=== PATIENT | female | born 1930 | race Caucasian/White ===

== ENCOUNTER 2017-06-29 14:19 | Emergency (ER) | payer MEDICARE ==
[~2017-06-29] VITALS: Ht 160 cm; Wt 56.0 kg
[~2017-06-29 14:19] MED LIST: ATOR10TA70 PO; AZIT250T13 PO; ESOM40CA30 PO; ESTR0.6261 PO; FENT-90 TP; FERR-86 PO; GABA-532 PO; HYDR-3972 PO; ISOS30TA6 PO; RIVA20TA PO; SERT100T PO; SOTA80TA69 PO; THY60T PO; VIT1TABL32 PO
[2017-06-29 15:07] LABS: BASOPHILS % (AUTO) 0.1 % (0-1); EOSINOPHILS # (AUTO) 0.1 X10'3 (0-0.9); EOSINOPHILS % (AUTO) 1.9 % (0-6); HEMATOCRIT 38.6 % (35.0-45.0); HEMOGLOBIN 13.2 g/dl (12.0-16.0); LYMPHOCYTES # (AUTO) 0.8 X10'3 (1.1-4.8); MEAN CORPUSCULAR HEMOGLOBIN 33.2 PG (27.0-31.0); MEAN CORPUSCULAR HGB CONC 34.1 % (33.0-36.5); MEAN CORPUSCULAR VOLUME 97.4 FL (78-98); MEAN PLATELET VOLUME 9.3 FL (7.4-10.4); MONOCYTES # (AUTO) 0.4 X10'3 (0-0.9); MONOCYTES % (AUTO) 7.4 % (2-12); NEUTROPHILS # (AUTO) 4.4 X10'3 (1.8-7.7); NEUTROPHILS % (AUTO) 76.6 % (42-75); PLATELET COUNT 173 X10'3 (140-440); RED BLOOD COUNT 3.96 X10'6 (4.20-5.60); RED CELL DISTRIBUTION WIDTH 13.1 % (11.5-14.5); WHITE BLOOD COUNT 5.8 X10'3 (4.5-11.0)
[2017-06-29 15:22] LABS: ALANINE AMINOTRANSFERASE 31 U/L (12-78); ALBUMIN 3.6 G/DL (3.4-5.0); ALBUMIN/GLOBULIN RATIO 0.7 (1.1-1.5); ALKALINE PHOSPHATASE 82 IU/L (46-116); ANION GAP 5 (8-16); ASPARTATE AMINO TRANSFERASE 26 U/L (10-37); BILIRUBIN,TOTAL 0.5 MG/DL (0.1-1.0); BLOOD UREA NITROGEN 29 MG/DL (7-18); BUN/CREATININE RATIO 38.7 (6.6-38.0); CALCIUM 9.6 MG/DL (8.5-10.1); CHLORIDE 102 MMOL/L (99-107); CREATININE 0.75 MG/DL (0.40-0.90); GLUCOSE 120 MG/DL (70-104); POTASSIUM 4.6 MMOL/L (3.5-5.1); SODIUM 141 MMOL/L (135-145); TOTAL CARBON DIOXIDE 33.7 MMOL/L (24-32); TOTAL PROTEIN 8.6 G/DL (6.4-8.2); eGFR 74 ML/MIN
[2017-06-29 15:24] LABS: INR 0.9 INR; PARTIAL THROMBOPLASTIN TIME 25 SECONDS (22-32); PROTHROMBIN TIME 9.7 SECONDS (9.0-12.0)
[2017-06-29] MEDS ORDERED: GUAI5SYR5 CORPAK (15:59)
[2017-06-29 16:12] VITALS: BP 115/70
== END 2017-06-29 16:14 | disposition home or self-care (01) ==
LOC: ER 14:19
DX: R06.00 Dyspnea, unspecified (principal); R05 Cough; R06.02 Shortness of breath; R42 Dizziness and giddiness; Z85.818 Personal history of malignant neoplasm of other sites of lip, oral cavity, and pharynx; I48.91 Unspecified atrial fibrillation; K21.9 Gastro-esophageal reflux disease without esophagitis; Z90.49 Acquired absence of other specified parts of digestive tract; Z79.899 Other long term (current) drug therapy
CPT/HCPCS: 36415; 71045; 80053; 84484; 85025; 85610; 85730; 93005; 99285

== ENCOUNTER 2019-08-28 15:23 | Emergency (ER) | payer MEDICARE ==
[~2019-08-28] VITALS: Ht 167.6 cm; Wt 43.6 kg
[~2019-08-28 15:23] MED LIST changes: -ESOM40CA30 PO; +ESOM40CA49 PO; +SOTA80TA46 PO; -SOTA80TA69 PO
[2019-08-28] MEDS ORDERED: morphine 4 MG/ML inj SYRINge IM ONE (17:10)
[2019-08-28] MEDS ORDERED: morphine 2 MG/ML inj. syringe IM ONE (17:10)
[2019-08-28] MEDS ORDERED: ondansetron/PF 4mg/2ml inj IM ONE (17:10)
[2019-08-28 17:20] VITALS: BP 139/74
[2019-08-29] MEDS ORDERED: PROC25SU31 RC (12:51)
[2019-08-29] MEDS ORDERED: NITR0.4T51 SL (12:52)
== END 2019-08-28 17:21 | disposition home or self-care (01) ==
LOC: ER 15:24
DX: K94.23 Gastrostomy malfunction (principal); I48.91 Unspecified atrial fibrillation; K21.9 Gastro-esophageal reflux disease without esophagitis; Z90.49 Acquired absence of other specified parts of digestive tract; Z90.710 Acquired absence of both cervix and uterus; Z98.890 Other specified postprocedural states; Z79.2 Long term (current) use of antibiotics; Z79.01 Long term (current) use of anticoagulants; Z79.899 Other long term (current) drug therapy
CPT/HCPCS: 96372; 99284; J2270; J2405

== ENCOUNTER 2019-08-29 12:12 | Day surgery (SDC) | payer MEDICARE ==
[~2019-08-29] VITALS: Ht 167.6 cm; Wt 42.8 kg
[2019-08-29 12:30] VITALS: BP 122/67
[2019-08-29] MEDS ORDERED: iohexol 300 MG/1 ML 50ml polymer ONE (12:49)
[2019-08-29] MEDS ORDERED: PROC25SU31 RC (12:51)
[2019-08-29] MEDS ORDERED: NITR0.4T51 SL (12:52)
[2019-08-29 13:00] VITALS: BP 125/70
--- NOTE | 2019-08-29 13:00 | NUR ---
IR TEAM HERE TO PLACE G TUBE, IN ROOM. KUB ORDERED, PT NAYAN WELL. VS STABLE. SLIGHT OOZING AT SITE
[2019-08-29] MEDS ORDERED: HYDROcodone/acetaminophen 10/325mg tab PO ONE (13:05)
[2019-08-29 13:10] VITALS: BP 123/69
[2019-08-29 13:50] VITALS: BP 125/71
== END 2019-08-29 13:50 | disposition home or self-care (01) ==
LOC: SSTAY O 12:12
PROVIDERS: ATTEND Radiology Vascular & Interventional Radiology
DX: R13.10 Dysphagia, unspecified (principal); Z85.89 Personal history of malignant neoplasm of other organs and systems
CPT/HCPCS: 43763; 74018; Q9967; B4087

== ENCOUNTER 2019-11-28 15:10 | Emergency (ER) | payer MEDICARE ==
[~2019-11-28] VITALS: Ht 167.6 cm; Wt 46.2 kg
[~2019-11-28 15:10] MED LIST changes: -ATOR10TA70 PO; -AZIT250T13 PO; +DOCU50LI22 OGT; -ESOM40CA49 PO; -FENT-90 TP; -FERR-86 PO; -GABA-532 PO; -HYDR-3972 PO; -ISOS30TA6 PO; +LACT10SO32 OGT; +LEVO100T9 PO; +LEVO250T58 PEG; +MORP15TA PO; +NITR0.4T51 SL; +OMEP20TA23 PO; +ONDA4TAB12 PO; +PHEN100C4 PEG; +RISP0.5T3 PEG; -THY60T PO; -VIT1TABL32 PO
[2019-11-28 15:19] VITALS: BP 98/47
--- NOTE | 2019-11-28 18:05 | NUR ---
SEEN BY MD AND DISCHARGED BEFORE RN WAS ABLE TO EXAMINE
== END 2019-11-28 18:06 | disposition home or self-care (01) ==
LOC: ER 15:11
DX: Z96.89 Presence of other specified functional implants (principal); I48.91 Unspecified atrial fibrillation; K21.9 Gastro-esophageal reflux disease without esophagitis; Z85.9 Personal history of malignant neoplasm, unspecified; Z90.89 Acquired absence of other organs; Z90.49 Acquired absence of other specified parts of digestive tract; Z90.710 Acquired absence of both cervix and uterus; Z79.2 Long term (current) use of antibiotics; Z79.899 Other long term (current) drug therapy
CPT/HCPCS: 43762; 99281; 99284; B4087

== ENCOUNTER 2020-02-21 15:20 | Outpatient (CLI) | payer MEDICARE ==
[~2020-02-21 15:20] MED LIST changes: -RISP0.5T3 PEG; +RISP0.5T65 PEG
== END 2020-02-21 23:59 | disposition home or self-care (01) ==
LOC: RAD 15:20
PROVIDERS: ATTEND Nurse Practitioner Family
DX: R13.12 Dysphagia, oropharyngeal phase (principal); Z85.89 Personal history of malignant neoplasm of other organs and systems
CPT/HCPCS: 74230

== ENCOUNTER 2020-09-19 16:03 | Emergency (ER) | payer MEDICARE ==
[~2020-09-19] VITALS: Ht 167.6 cm; Wt 43.6 kg
[2020-09-19] MEDS ORDERED: dextrose 5%-1/2 normal saline 1,000 ML IV ONE (16:55)
[2020-09-19 17:05] LABS: BASOPHILS % (AUTO) 0.2 % (0-1); EOSINOPHILS % (AUTO) 0.1 % (0-6); HEMATOCRIT 33.4 % (35.0-45.0); HEMOGLOBIN 11.1 g/dl (12.0-16.0); LYMPHOCYTES # (AUTO) 0.2 X10'3 (1.1-4.8); LYMPHOCYTES % (AUTO) 1.2 % (21-51); MEAN CORPUSCULAR HEMOGLOBIN 30.5 PG (27.0-31.0); MEAN CORPUSCULAR HGB CONC 33.1 g/dL (33.0-36.5); MEAN CORPUSCULAR VOLUME 92.1 FL (78-98); MEAN PLATELET VOLUME 9.1 FL (7.4-10.4); MONOCYTES # (AUTO) 0.5 X10'3 (0-0.9); NEUTROPHILS # (AUTO) 12.5 X10'3 (1.8-7.7); NEUTROPHILS % (AUTO) 94.5 % (42-75); PLATELET COUNT 131 X10'3 (140-440); RED BLOOD COUNT 3.63 X10'6 (4.20-5.60); RED CELL DISTRIBUTION WIDTH 14.1 % (11.5-14.5); WHITE BLOOD COUNT 13.2 X10'3 (4.5-11.0)
[2020-09-19 17:21] LABS: ALANINE AMINOTRANSFERASE 23 U/L (12-78); ALBUMIN 3.2 G/DL (3.4-5.0); ALBUMIN/GLOBULIN RATIO 0.7 (1.1-1.5); ALKALINE PHOSPHATASE 75 IU/L (46-116); ANION GAP 10 (8-16); ASPARTATE AMINO TRANSFERASE 32 U/L (10-37); BILIRUBIN,TOTAL 0.5 MG/DL (0.1-1.0); BLOOD UREA NITROGEN 32 MG/DL (7-18); CALCIUM 8.8 MG/DL (8.5-10.1); CHLORIDE 103 MMOL/L (99-107); GLUCOSE 172 MG/DL (70-104); MAGNESIUM 1.8 MG/DL (1.5-2.4); SODIUM 140 MMOL/L (135-145); TOTAL CARBON DIOXIDE 27.3 MMOL/L (24-32); TOTAL PROTEIN 7.9 G/DL (6.4-8.2); eGFR 68 ML/MIN
[2020-09-19] MEDS ORDERED: CefTRIAXone/D5W-Rocephin 1gm 50 ML IV ONE (18:30)
[2020-09-19] MEDS ORDERED: normal saline 1000ML IV soln IVB ONE ×2 (19:20→19:25)
--- NOTE | 2020-09-19 19:30 | NUR ---
attempt made to collect urine- noted that patient brief was wet. Perineal care provided and clean brief in place. ED provider made aware- unable to collect urine specimen at this time.
[2020-09-19 21:22] LABS: CLARITY,URINE SLIGHTLY CLOUDY (Clear); COLOR,URINE YELLOW (Yellow); GLUCOSE, URINE NEGATIVE (Neg); KETONES,URINE NEGATIVE (Neg); LEUKOCYTE ESTERASE ,URINE TRACE (Neg); NITRITES, URINE NEGATIVE (Neg); OCCULT BLOOD,URINE LARGE (Neg); PH,URINE 7.5 (4.8-8.0); PROTEIN,URINE TRACE mg/dl (Neg)
[2020-09-19 21:29] LABS: UA COLLECTION TYPE STRAIGHT CATH
[2020-09-19 21:36] LABS: BACTERIA,URINE 2+ /HPF (Neg); SQUAMOUS EPITHELIAL CELL,UR NONE SEEN /LPF (FEW); WBC,URINE 0-4 /HPF (0-4)
[2020-09-19] MEDS ORDERED: CEPH250T PO (21:55)
[2020-09-19 22:59] VITALS: BP 107/61
== END 2020-09-19 23:01 | disposition home or self-care (01) ==
LOC: ER 16:03
DX: N39.0 Urinary tract infection, site not specified (principal); R41.82 Altered mental status, unspecified; R53.1 Weakness; E86.0 Dehydration; R05 Cough; I48.91 Unspecified atrial fibrillation; K21.9 Gastro-esophageal reflux disease without esophagitis; Z85.9 Personal history of malignant neoplasm, unspecified; Z90.89 Acquired absence of other organs; Z90.49 Acquired absence of other specified parts of digestive tract; Z90.710 Acquired absence of both cervix and uterus; Z98.890 Other specified postprocedural states; Z79.2 Long term (current) use of antibiotics; Z79.899 Other long term (current) drug therapy
CPT/HCPCS: 36415; 71045; 80053; 81001; 83605; 83735; 84145; 84443; 84484; 85025; 87040; 87088; 93005; 96361; 96365; 99285; J0696; J7030; 87077

== ENCOUNTER 2022-01-31 19:54 | Inpatient (IN) | payer MEDICARE ==
[~2022-01-31] VITALS: Ht 160 cm; Wt 65.9 kg
[~2022-01-31 19:54] MED LIST changes: -DOCU50LI22 OGT; -ESTR0.6261 PO; -LACT10SO32 OGT; -LEVO250T58 PEG; -NITR0.4T51 SL; -OMEP20TA23 PO; -ONDA4TAB12 PO; -PHEN100C4 PEG; -RISP0.5T65 PEG; -RIVA20TA PO
[2022-01-31] MEDS ORDERED: APIX2.5T PO (20:23)
[2022-01-31] MEDS ORDERED: CARV6.2555 PO (20:23)
[2022-01-31 20:34] LABS: BASOPHILS % (AUTO) 0.1 % (0-1); EOSINOPHILS % (AUTO) 0.1 % (0-6); HEMATOCRIT 39.3 % (35.0-45.0); HEMOGLOBIN 13.4 g/dl (12.0-16.0); LYMPHOCYTES # (AUTO) 0.3 X10'3 (1.1-4.8); LYMPHOCYTES % (AUTO) 2.3 % (21-51); MEAN CORPUSCULAR HEMOGLOBIN 32.2 PG (27.0-31.0); MEAN CORPUSCULAR HGB CONC 34.2 g/dL (33.0-36.5); MEAN CORPUSCULAR VOLUME 94.3 FL (78-98); MEAN PLATELET VOLUME 9.2 FL (7.4-10.4); MONOCYTES # (AUTO) 0.6 X10'3 (0-0.9); MONOCYTES % (AUTO) 4.1 % (2-12); NEUTROPHILS # (AUTO) 12.9 X10'3 (1.8-7.7); NEUTROPHILS % (AUTO) 93.4 % (42-75); PLATELET COUNT 124 X10'3 (140-440); RED BLOOD COUNT 4.17 X10'6 (4.20-5.60); RED CELL DISTRIBUTION WIDTH 13.9 % (11.5-14.5); WHITE BLOOD COUNT 13.8 X10'3 (4.5-11.0)
[2022-01-31 20:40] LABS: CLARITY,URINE CLOUDY (Clear); COLOR,URINE YELLOW (Yellow); GLUCOSE, URINE NEGATIVE (Neg); KETONES,URINE NEGATIVE (Neg); LEUKOCYTE ESTERASE ,URINE SMALL (Neg); NITRITES, URINE POSITIVE (Neg); OCCULT BLOOD,URINE LARGE (Neg); PROTEIN,URINE 30 mg/dl (Neg)
[2022-01-31 20:43] LABS: ALANINE AMINOTRANSFERASE 29 U/L (12-78); ALBUMIN 3.1 G/DL (3.4-5.0); ALBUMIN/GLOBULIN RATIO 0.6 (1.1-1.5); ALKALINE PHOSPHATASE 115 IU/L (46-116); ANION GAP 8 (8-16); ASPARTATE AMINO TRANSFERASE 34 U/L (10-37); BILIRUBIN,TOTAL 0.7 MG/DL (0.1-1.0); BLOOD UREA NITROGEN 35 MG/DL (7-18); BUN/CREATININE RATIO 39.8 (6.6-38.0); CALCIUM 9.3 MG/DL (8.5-10.1); CHLORIDE 105 MMOL/L (99-107); CREATININE 0.88 MG/DL (0.40-0.90); GLUCOSE 184 MG/DL (70-104); POTASSIUM 4.1 MMOL/L (3.5-5.1); SODIUM 141 MMOL/L (135-145); TOTAL CARBON DIOXIDE 28.3 MMOL/L (24-32); eGFR 61 ML/MIN
[2022-01-31 20:51] LABS: UA COLLECTION TYPE STRAIGHT CATH
[2022-01-31 20:52] LABS: BACTERIA,URINE 4+ /HPF (Neg); RBC,URINE 0-2 /HPF (0-2); SQUAMOUS EPITHELIAL CELL,UR NONE SEEN /LPF (FEW); WBC,URINE 20-30 /HPF (0-4)
[2022-01-31] MEDS ORDERED: piperacillin/tazo 3.375gm/50ml 50 ML IV STA (21:05)
[2022-01-31] MEDS ORDERED: metoprolol tartrate 1mg/ml inj IV ONE (21:05)
[2022-01-31] MEDS ORDERED: normal saline 1000ml 1,000 ML IV ONE (21:05)
[2022-01-31] MEDS ORDERED: morphine IR (immed. release) 30mg tablet PO PRN (21:40)
[2022-01-31] MEDS ORDERED: ondansetron/PF 4mg/2ml inj IV PRN (22:05)
[2022-01-31] MEDS ORDERED: magnesium 4gm in 100ml NS 100 ML IV PRN (22:05)
[2022-01-31] MEDS ORDERED: acetaminophen 325mg tablet PO PRN (22:05)
[2022-01-31] MEDS ORDERED: potassium Cl 40MEQ/1/2NS 520ml 520 ML IV PRN (22:05)
[2022-01-31] MEDS ORDERED: acetaminophen 650mg rectal suppository RC PRN (22:05)
[2022-01-31] MEDS ORDERED: mag hydrox/Alum hydrox/simeth 30ml oral suspension PO PRN (22:05)
--- NOTE | 2022-02-01 02:30 | NUR ---
Pt has not produced urine since admission. aware. New orders for NS at 100 ml/hr.
[2022-02-01] MEDS: normal saline 1000ml 1,000 ML IV SCH ×3 (03:04→20:42)
--- NOTE | 2022-02-01 03:18 | NUR ---
Patient in room ED 7. I have received report from Myriam ESTRADA RN and had the opportunity to ask questions and assume patient care.
[2022-02-01 03:46] LABS: BASOPHILS % (AUTO) 0.1 % (0-1); EOSINOPHILS % (AUTO) 0 % (0-6); HEMATOCRIT 35.6 % (35.0-45.0); HEMOGLOBIN 12.1 g/dl (12.0-16.0); LYMPHOCYTES # (AUTO) 0.8 X10'3 (1.1-4.8); LYMPHOCYTES % (AUTO) 5.3 % (21-51); MEAN CORPUSCULAR HEMOGLOBIN 32.1 PG (27.0-31.0); MEAN CORPUSCULAR HGB CONC 33.9 g/dL (33.0-36.5); MEAN CORPUSCULAR VOLUME 94.8 FL (78-98); MEAN PLATELET VOLUME 9.4 FL (7.4-10.4); MONOCYTES # (AUTO) 0.7 X10'3 (0-0.9); MONOCYTES % (AUTO) 5.1 % (2-12); NEUTROPHILS % (AUTO) 89.5 % (42-75); PLATELET COUNT 136 X10'3 (140-440); RED BLOOD COUNT 3.76 X10'6 (4.20-5.60); RED CELL DISTRIBUTION WIDTH 13.9 % (11.5-14.5); WHITE BLOOD COUNT 14.5 X10'3 (4.5-11.0)
[2022-02-01 03:57] LABS: ALANINE AMINOTRANSFERASE 23 U/L (12-78); ALBUMIN 2.6 G/DL (3.4-5.0); ALBUMIN/GLOBULIN RATIO 0.6 (1.1-1.5); ALKALINE PHOSPHATASE 97 IU/L (46-116); ANION GAP 8 (8-16); ASPARTATE AMINO TRANSFERASE 28 U/L (10-37); BILIRUBIN,TOTAL 0.6 MG/DL (0.1-1.0); BLOOD UREA NITROGEN 31 MG/DL (7-18); BUN/CREATININE RATIO 32.6 (6.6-38.0); CHLORIDE 108 MMOL/L (99-107); CREATININE 0.95 MG/DL (0.40-0.90); GLUCOSE 147 MG/DL (70-104); MAGNESIUM 1.8 MG/DL (1.5-2.4); POTASSIUM 3.9 MMOL/L (3.5-5.1); SODIUM 143 MMOL/L (135-145); TOTAL CARBON DIOXIDE 27.4 MMOL/L (24-32); TOTAL PROTEIN 7.2 G/DL (6.4-8.2); eGFR 55 ML/MIN
[2022-02-01 04:00] VITALS: BP 116/59
--- NOTE | 2022-02-01 04:30 | NUR ---
Pt. arrived via [place] fr/ED in no acute distress. Oriented to bed, room, and surroundings. Pt. mostly non verbal, answering simple yes/no questions approp. Appears fatigued and lethargic, affect flat. Reviewed POC, SCDs placed, and IS at bedside. Pt. very sleepy and unable to follow instructions at this time. NPO as ord. Gastric tube access to L ABD quad is intact. IV fluids infusing per ord.
--- NOTE | 2022-02-01 06:25 | NUR ---
Problems reprioritized. Patient report given, questions answered & plan of care reviewed with Jessenia VIVEROS.
[2022-02-01 07:06] VITALS: BP 105/54
[2022-02-01] MEDS: K and/or MAG REPLACEMENT MC SCH ×2 (08:00→19:09)
[2022-02-01] MEDS: docusate sod 100mg capsule PO SCH ×2 (08:00→20:41)
[2022-02-01] MEDS: CefTRIAXone/D5W-Rocephin 1gm 50 ML IV SCH (08:00)
[2022-02-01 11:00] VITALS: BP 119/52
[2022-02-01] MEDS: levoTHYROXINE 100mcg tablet PO SCH (11:00)
[2022-02-01] MEDS: carvedilol 6.25mg tablet PO SCH ×2 (11:00→20:41)
[2022-02-01] MEDS: apixaban 2.5mg tablet PO SCH ×2 (11:00→20:41)
[2022-02-01] MEDS: sertraline 50mg tablet PO SCH (11:00)
--- NOTE | 2022-02-01 14:40 | NUR ---
Mrs. Rabago is typically chair ridden at home and worsening with ambulation. Pts is no longer able to provide safe care for the pt. The pt will benefit from transitioning into a group home correction. I request a social insurance administrator referral and to partner with case management
[2022-02-01 15:00] VITALS: BP 103/59
[2022-02-01 18:00] VITALS: BP 141/77
[2022-02-01 22:00] VITALS: BP 153/85
[2022-02-02 02:00] VITALS: BP 170/87
--- NOTE | 2022-02-02 02:48 | NUR ---
SaO2 is 95 % 2 LPM, 93% on RA, bilateral lungs sound is crackle, wet cough, current is on NS 100 ml/h, tube feeding residum is 0 ml, notified and new order NS 50 ml/h D.C NS 100 ml/h
[2022-02-02] MEDS: normal saline 1000ml 1,000 ML IV SCH ×2 (03:29→22:50)
[2022-02-02 07:09] VITALS: BP 146/77
[2022-02-02] MEDS: levoTHYROXINE 100mcg tablet PO SCH (08:00)
[2022-02-02] MEDS: K and/or MAG REPLACEMENT MC SCH ×2 (08:00→20:00)
[2022-02-02] MEDS: docusate sod 100mg capsule PO SCH ×2 (08:00→21:58)
[2022-02-02 09:26] LABS: BASOPHILS % (AUTO) 0.4 % (0-1); EOSINOPHILS % (AUTO) 0.1 % (0-6); HEMATOCRIT 36.7 % (35.0-45.0); HEMOGLOBIN 12.2 g/dl (12.0-16.0); LYMPHOCYTES # (AUTO) 0.8 X10'3 (1.1-4.8); LYMPHOCYTES % (AUTO) 6.1 % (21-51); MEAN CORPUSCULAR HEMOGLOBIN 31.6 PG (27.0-31.0); MEAN CORPUSCULAR HGB CONC 33.1 g/dL (33.0-36.5); MEAN CORPUSCULAR VOLUME 95.5 FL (78-98); MEAN PLATELET VOLUME 9.7 FL (7.4-10.4); MONOCYTES # (AUTO) 0.7 X10'3 (0-0.9); MONOCYTES % (AUTO) 5.9 % (2-12); NEUTROPHILS # (AUTO) 11.1 X10'3 (1.8-7.7); NEUTROPHILS % (AUTO) 87.5 % (42-75); PLATELET COUNT 141 X10'3 (140-440); RED BLOOD COUNT 3.85 X10'6 (4.20-5.60); RED CELL DISTRIBUTION WIDTH 13.9 % (11.5-14.5); WHITE BLOOD COUNT 12.6 X10'3 (4.5-11.0)
[2022-02-02 09:42] LABS: ALANINE AMINOTRANSFERASE 32 U/L (12-78); ALBUMIN 3.1 G/DL (3.4-5.0); ALBUMIN/GLOBULIN RATIO 0.6 (1.1-1.5); ALKALINE PHOSPHATASE 105 IU/L (46-116); ANION GAP 12 (8-16); ASPARTATE AMINO TRANSFERASE 39 U/L (10-37); BILIRUBIN,TOTAL 0.6 MG/DL (0.1-1.0); BLOOD UREA NITROGEN 19 MG/DL (7-18); BUN/CREATININE RATIO 27.1 (6.6-38.0); CHLORIDE 106 MMOL/L (99-107); GLUCOSE 115 MG/DL (70-104); MAGNESIUM 1.6 MG/DL (1.5-2.4); SODIUM 144 MMOL/L (135-145); TOTAL CARBON DIOXIDE 26.4 MMOL/L (24-32); eGFR 79 ML/MIN
[2022-02-02] MEDS ORDERED: morphine IR (immed. release) 30mg tablet PO PRN (09:47)
--- NOTE | 2022-02-02 09:55 | NUR ---
Rm. [id number] Jim Garza, critical K3.0+ will replace per protocol Jessenia VIVEROS #[id number] paged
[2022-02-02] MEDS: CefTRIAXone/D5W-Rocephin 1gm 50 ML IV SCH (10:05)
[2022-02-02] MEDS: potassium Cl 20 mEq SR tablet PO PRN ×4 (10:06→21:59)
[2022-02-02] MEDS: apixaban 2.5mg tablet PO SCH ×2 (10:06→21:59)
[2022-02-02] MEDS: carvedilol 6.25mg tablet PO SCH ×2 (10:06→21:58)
[2022-02-02] MEDS: sertraline 50mg tablet PO SCH (10:06)
--- NOTE | 2022-02-02 15:30 | NUR ---
patient requested morphine and pharmacy does not have appropriate ordered dose, ordered
--- NOTE | 2022-02-02 15:40 | NUR ---
Rm [id number] Greg. Pharmacy does not have pt. morphine dosage available. Please advise for pt pain 10/29 in back Jessenia VIVEROS [phone]
[2022-02-02] MEDS ORDERED: oxyCODONE IR 5mg (immed. release) tablet PO PRN ×2 (15:50)
[2022-02-02] MEDS: amox tr/potassium clavulanate 500mg/125mg TAB PO SCH (17:50)
[2022-02-02 18:00] VITALS: BP 141/72
[2022-02-02 22:00] VITALS: BP 130/64
[2022-02-03 06:00] VITALS: BP 151/92
[2022-02-03 06:15] LABS: BASOPHILS % (AUTO) 0.4 % (0-1); EOSINOPHILS % (AUTO) 0.3 % (0-6); HEMATOCRIT 35.6 % (35.0-45.0); HEMOGLOBIN 12.3 g/dl (12.0-16.0); LYMPHOCYTES # (AUTO) 0.7 X10'3 (1.1-4.8); LYMPHOCYTES % (AUTO) 6.5 % (21-51); MEAN CORPUSCULAR HEMOGLOBIN 32.2 PG (27.0-31.0); MEAN CORPUSCULAR HGB CONC 34.4 g/dL (33.0-36.5); MEAN CORPUSCULAR VOLUME 93.5 FL (78-98); MEAN PLATELET VOLUME 8.8 FL (7.4-10.4); MONOCYTES # (AUTO) 0.6 X10'3 (0-0.9); MONOCYTES % (AUTO) 6.1 % (2-12); NEUTROPHILS # (AUTO) 8.9 X10'3 (1.8-7.7); NEUTROPHILS % (AUTO) 86.7 % (42-75); PLATELET COUNT 136 X10'3 (140-440); RED BLOOD COUNT 3.81 X10'6 (4.20-5.60); RED CELL DISTRIBUTION WIDTH 13.8 % (11.5-14.5); WHITE BLOOD COUNT 10.3 X10'3 (4.5-11.0)
[2022-02-03 06:31] LABS: ALANINE AMINOTRANSFERASE 29 U/L (12-78); ALBUMIN/GLOBULIN RATIO 0.6 (1.1-1.5); ALKALINE PHOSPHATASE 102 IU/L (46-116); ANION GAP 9 (8-16); ASPARTATE AMINO TRANSFERASE 39 U/L (10-37); BILIRUBIN,TOTAL 0.6 MG/DL (0.1-1.0); BLOOD UREA NITROGEN 16 MG/DL (7-18); BUN/CREATININE RATIO 23.9 (6.6-38.0); CALCIUM 9.1 MG/DL (8.5-10.1); CHLORIDE 108 MMOL/L (99-107); CREATININE 0.67 MG/DL (0.40-0.90); GLUCOSE 125 MG/DL (70-104); MAGNESIUM 1.6 MG/DL (1.5-2.4); POTASSIUM 3.3 MMOL/L (3.5-5.1); SODIUM 142 MMOL/L (135-145); TOTAL CARBON DIOXIDE 24.7 MMOL/L (24-32); TOTAL PROTEIN 7.7 G/DL (6.4-8.2); eGFR 83 ML/MIN
--- NOTE | 2022-02-03 06:52 | NUR ---
Patient in room PCU 3014. I have received report from kenneth bhatti and had the opportunity to ask questions and assume patient care.
[2022-02-03] MEDS: K and/or MAG REPLACEMENT MC SCH ×2 (08:00→19:08)
[2022-02-03] MEDS: amox tr/potassium clavulanate 500mg/125mg TAB PO SCH ×2 (09:34→17:04)
[2022-02-03] MEDS: sertraline 50mg tablet PO SCH (09:35)
[2022-02-03] MEDS: apixaban 2.5mg tablet PO SCH ×2 (09:35→19:23)
[2022-02-03] MEDS: carvedilol 6.25mg tablet PO SCH ×2 (09:35→19:22)
[2022-02-03] MEDS: levoTHYROXINE 100mcg tablet PO SCH (09:36)
[2022-02-03] MEDS: docusate sodium 100mg/10ml UD cup PO SCH ×2 (09:47→19:22)
[2022-02-03 10:00] VITALS: BP 138/78
[2022-02-03] MEDS ORDERED: POTASSIUM BICARB 20meq eff tab 20 MEQ TABLET.EFF PO PRN ×2 (10:08→10:10)
--- NOTE | 2022-02-03 10:29 | NUR ---
TC from RN regarding pt's bolus TF. RD unaware that this pt was on TF as no nutrition consult in place. Spoke w/ pt's who states they have been following the same TF regimen for 6 years provided by their doctor. Current regimen is Bolus TF TID using Isosource 1.2, 500ml/bolus. This provides 1500ml volume, 1800kcals. 81g protein, 1215ml free water. Per RN pt is to be discharged to [facility] today. Recommend continuing home TF regimen at this time. Pt had box of TF at bedside. Will place additional TF recs below in case pt remains here. Will continue to monitor. Recommendations: 1. Continue home TF regimen of Bolus TID using Isosource 1.2 w/ 500ml/bolus 2. IF pt remains admitted, change to Bolus QID using Jevity 1.2 w/ 330ml/bolus. Feed at 0800, 1200, 1600, 2000 3. Additional 50ml water flush before and after each bolus feed. Monitor serum Na 4. Bowel care per rx 5. Weekly wts Addendum: 02/03/22 at [address] Amended: Links added.
[2022-02-03] MEDS: POTASSIUM BICARB 20meq eff tab 20 MEQ TABLET.EFF PO PRN ×2 (10:31→17:00)
[2022-02-03 15:00] VITALS: BP 152/89
--- NOTE | 2022-02-03 16:11 | NUR ---
Page Sent PAGER ID: [phone] MESSAGE: [phone] Jim RAMOS, CAN I ORDER TYLENOL FOR PT SHE HAS A HEADACHE. FAY [phone]
--- NOTE | 2022-02-03 17:22 | NUR ---
Page Sent promotional table spacer PAGER ID: [phone] MESSAGE: Page Sent MESSAGE: [phone] B RICHARD, CAN I ORDER TYLENOL FOR PT SHE HAS A HEADACHE. FAY [phone]
[2022-02-03 18:00] VITALS: BP 136/70
[2022-02-03] MEDS: normal saline 1000ml 1,000 ML IV SCH (18:06)
--- NOTE | 2022-02-03 18:24 | NUR ---
Problems reprioritized. Patient report given, questions answered & plan of care reviewed with BECKY VIVEROS.
[2022-02-03 22:00] VITALS: BP 137/77
[2022-02-04] MEDS: POTASSIUM BICARB 20meq eff tab 20 MEQ TABLET.EFF PO PRN (00:41)
--- NOTE | 2022-02-04 01:20 | NUR ---
Notified MD Francis that patient had episode of emesis after received Effer K through her renetta tube and patient assessed to be slightly SOB with audible wheezing. New order received for stat chest x-ray for r/o aspiration.
[2022-02-04 02:00] VITALS: BP 159/87
--- NOTE | 2022-02-04 02:42 | NUR ---
Chest x-ray results report to MD Francis with no new orders.
[2022-02-04 06:00] VITALS: BP 149/81
--- NOTE | 2022-02-04 06:00 | NUR ---
Patient in room PCU 3014. I have received report from alissa bhatti and had the opportunity to ask questions and assume patient care.
[2022-02-04 06:43] LABS: BASOPHILS # (AUTO) 0.1 X10'3 (0-0.2); BASOPHILS % (AUTO) 0.3 % (0-1); EOSINOPHILS % (AUTO) 0 % (0-6); HEMATOCRIT 37.6 % (35.0-45.0); HEMOGLOBIN 12.9 g/dl (12.0-16.0); LYMPHOCYTES # (AUTO) 0.7 X10'3 (1.1-4.8); LYMPHOCYTES % (AUTO) 4.1 % (21-51); MEAN CORPUSCULAR HEMOGLOBIN 32.5 PG (27.0-31.0); MEAN CORPUSCULAR HGB CONC 34.3 g/dL (33.0-36.5); MEAN CORPUSCULAR VOLUME 94.7 FL (78-98); MEAN PLATELET VOLUME 9.2 FL (7.4-10.4); MONOCYTES # (AUTO) 0.6 X10'3 (0-0.9); MONOCYTES % (AUTO) 3.4 % (2-12); NEUTROPHILS % (AUTO) 92.2 % (42-75); PLATELET COUNT 161 X10'3 (140-440); RED BLOOD COUNT 3.97 X10'6 (4.20-5.60); WHITE BLOOD COUNT 17.4 X10'3 (4.5-11.0)
[2022-02-04 06:58] LABS: ALANINE AMINOTRANSFERASE 42 U/L (12-78); ALBUMIN/GLOBULIN RATIO 0.6 (1.1-1.5); ALKALINE PHOSPHATASE 111 IU/L (46-116); ANION GAP 10 (8-16); BILIRUBIN,TOTAL 1.1 MG/DL (0.1-1.0); BLOOD UREA NITROGEN 20 MG/DL (7-18); BUN/CREATININE RATIO 26.7 (6.6-38.0); CALCIUM 9.2 MG/DL (8.5-10.1); CHLORIDE 104 MMOL/L (99-107); CREATININE 0.75 MG/DL (0.40-0.90); GLUCOSE 162 MG/DL (70-104); MAGNESIUM 1.8 MG/DL (1.5-2.4); SODIUM 139 MMOL/L (135-145); TOTAL CARBON DIOXIDE 25.5 MMOL/L (24-32); TOTAL PROTEIN 8.1 G/DL (6.4-8.2); eGFR 73 ML/MIN
[2022-02-04 07:00] LABS: ASPARTATE AMINO TRANSFERASE 64 U/L (10-37)
[2022-02-04] MEDS: K and/or MAG REPLACEMENT MC SCH (08:00)
[2022-02-04] MEDS: carvedilol 6.25mg tablet PO SCH (08:54)
[2022-02-04] MEDS: amox tr/potassium clavulanate 500mg/125mg TAB PO SCH (08:54)
[2022-02-04] MEDS: sertraline 50mg tablet PO SCH (08:54)
[2022-02-04] MEDS: apixaban 2.5mg tablet PO SCH (08:54)
[2022-02-04] MEDS: docusate sodium 100mg/10ml UD cup PO SCH (08:54)
[2022-02-04] MEDS: levoTHYROXINE 100mcg tablet PO SCH (08:54)
[2022-02-04 10:00] VITALS: BP 149/76
--- NOTE | 2022-02-04 11:19 | NUR ---
Problems reprioritized. Patient report given, questions answered & plan of care reviewed with lenin at [facility] .
--- NOTE | 2022-02-04 11:44 | NUR ---
pt is stable for discharge, all belongings and tube feeding supplies were given to the [facility] personal and the facility is aware of it coming with pt them, both IV were dc, pt was cleaned up and changed for transport. pt was wheeled down in a wheel chair and left with [facility] personnel to [facility].
== END 2022-02-04 11:44 | DRG 871 ==
LOC: ER 19:55 → ED HOLD 22:14 → UNDOADMIN 22:14 → ED HOLD 23:30 → PCU 3S 02-01 03:30 → ED HOLD 02-01 03:30
PROVIDERS: ADMIT Family Medicine; ATTEND Internal Medicine
DX: A41.9 Sepsis, unspecified organism (principal); G93.41 Metabolic encephalopathy; N39.0 Urinary tract infection, site not specified; B96.20 Unspecified Escherichia coli [E. coli] as the cause of diseases classified elsewhere; Z20.822 Contact with and (suspected) exposure to COVID-19; E03.9 Hypothyroidism, unspecified; I48.0 Paroxysmal atrial fibrillation; R62.7 Adult failure to thrive; E87.6 Hypokalemia; R03.0 Elevated blood-pressure reading, without diagnosis of hypertension; F32.A Depression, unspecified; K21.9 Gastro-esophageal reflux disease without esophagitis; R31.9 Hematuria, unspecified; M54.9 Dorsalgia, unspecified; Z79.01 Long term (current) use of anticoagulants; Z85.819 Personal history of malignant neoplasm of unspecified site of lip, oral cavity, and pharynx; Z85.89 Personal history of malignant neoplasm of other organs and systems; Z68.25 Body mass index [BMI] 25.0-25.9, adult; Z90.710 Acquired absence of both cervix and uterus; Z92.21 Personal history of antineoplastic chemotherapy; Z92.3 Personal history of irradiation; Z93.1 Gastrostomy status; Z79.899 Other long term (current) drug therapy; Z90.49 Acquired absence of other specified parts of digestive tract
CPT/HCPCS: 36415; 71045; 80053; 81001; 83605; 83735; 84145; 84443; 85025; 87040; 87077; 87081; 87088; 87186; 87635; 87811; 93005; 96365; 96375; 97110; 97116; 97162; 97530; 97535; 99285; A6258; G0378; J0696; J2543; J3490; J7030

== ENCOUNTER 2022-02-10 05:07 | Emergency (ER) | payer MEDICARE ==
[~2022-02-10] VITALS: Ht 162.6 cm; Wt 63.6 kg
[~2022-02-10 05:07] MED LIST changes: +APIX2.5T PO; +CARV6.2555 PO; -SOTA80TA46 PO
[2022-02-10] MEDS ORDERED: diatrozoate meglu/diatrozoate sod (37% iodine) 120ML oral solution PO ONE (07:30)
--- NOTE | 2022-02-10 10:25 | NUR ---
JACKELINE Singleton from [facility] was called and given report about pt's status and informed pt was leaving w/ EMS back to facility
[2022-02-10 10:31] VITALS: BP 122/54
== END 2022-02-10 10:42 | disposition home or self-care (01) ==
LOC: ER 05:08
DX: K94.23 Gastrostomy malfunction (principal); I48.91 Unspecified atrial fibrillation; K21.9 Gastro-esophageal reflux disease without esophagitis; Z87.440 Personal history of urinary (tract) infections; Z85.9 Personal history of malignant neoplasm, unspecified; Z90.89 Acquired absence of other organs; Z90.49 Acquired absence of other specified parts of digestive tract; Z90.710 Acquired absence of both cervix and uterus; Z98.890 Other specified postprocedural states; Z79.899 Other long term (current) drug therapy
CPT/HCPCS: 43762; 74018; 99284; B4087; Q9963

== ENCOUNTER 2022-02-22 19:18 | Emergency (ER) | payer MEDICARE ==
[~2022-02-22] VITALS: Ht 154.9 cm; Wt 50.9 kg
--- NOTE | 2022-02-22 20:17 | NUR ---
PEG tube top piece is cracked. Tube itself seems patent after RN attempted to irrigate with water
--- NOTE | 2022-02-22 21:47 | NUR ---
called nilson johnson for doctor on patient.
--- NOTE | 2022-02-22 22:19 | NUR ---
shift report with JACKELINE Varma at [facility]. PEG tube piece was replaced by ED provider. RN changed soiled pt's brief and clothing. Pt is having diarrhea, buttocks appeared to be red and raw. It was painful for pt when RN cleansed her.
--- NOTE | 2022-02-22 22:48 | NUR ---
LATISHA WAS CALLED FOR TRANSPORT BACK TO HER FACILITY. LATISHA CALLED BACK AND WILL BE HERE IN 15 TO 20 MINUTES TO TRANSPORT HER BACK.
[2022-02-22 23:16] VITALS: BP 114/77
== END 2022-02-22 23:19 | disposition home or self-care (01) ==
LOC: ER 19:19
DX: K94.23 Gastrostomy malfunction (principal); K21.9 Gastro-esophageal reflux disease without esophagitis; Z90.49 Acquired absence of other specified parts of digestive tract; Z98.890 Other specified postprocedural states; Z90.710 Acquired absence of both cervix and uterus
CPT/HCPCS: 43762; 99284

== ENCOUNTER 2022-09-26 07:17 | Emergency (ER) | payer MEDICARE ==
[~2022-09-26] VITALS: Ht 152.4 cm; Wt 54.0 kg
[2022-09-26] MEDS ORDERED: diatrozoate meglu/diatrozoate sod (37% iodine) 120ML oral solution PO ONE (07:45)
[2022-09-26] MEDS ORDERED: diatr meglu/diatrizoate 30ml oral sol.-(3 dose) bottle PO ONE (08:00)
[2022-09-26 09:03] VITALS: BP 103/39
--- NOTE | 2022-09-26 12:14 | NUR ---
DANIELLA-PEDRO WILL BE HERE [phone]
== END 2022-09-26 13:31 | disposition home or self-care (01) ==
LOC: ER 07:17
DX: K94.23 Gastrostomy malfunction (principal); K21.9 Gastro-esophageal reflux disease without esophagitis; F03.90 Unspecified dementia, unspecified severity, without behavioral disturbance, psychotic disturbance, mood disturbance, and anxiety; Z43.1 Encounter for attention to gastrostomy; Z90.49 Acquired absence of other specified parts of digestive tract; Z98.890 Other specified postprocedural states
CPT/HCPCS: 43762; 74018; 99284; B4087; Q9963; 99283